=== PATIENT | male | born 1980 | race Hispanic/Latino ===

== ENCOUNTER 2021-02-25 10:26 | Emergency (ER) | payer SELFPAY ==
--- NOTE | 2021-02-25 10:45 | Emergency Department Report ---
ED General Adult HPI - General Chief complaint: Altered Mental Status Stated complaint: SEIZURE Time Seen by Provider: 02/25/21 10:35 Source: patient, EMS Mode of arrival: Stretcher Limitations: Altered Mental Status - History of Present Illness Initial comments: Patient is 40 years old male with history of substance abuse. Patient brought to the emergency room by EMS from a local parking lot for evaluation of possible seizure however there is nobody witnessed any seizure. Upon arrival to the ER patient is alert, oriented x3 in no acute distress. Patient stated that he does not remember what happened. Patient stated that he using methamphetamine every day. Patient denied any suicidal or homicidal ideation. He denied any auditory or visual hallucination. ED Review of Systems ROS: Stated complaint: SEIZURE Other details as noted in HPI Comment: All other systems reviewed and negative Constitutional: denies: chills, fever Respiratory: denies: cough, shortness of breath, SOB with exertion, SOB at rest Cardiovascular: denies: chest pain, palpitations Gastrointestinal: denies: abdominal pain, nausea, vomiting, diarrhea, constipation, hematemesis, melena, hematochezia Musculoskeletal: denies: back pain Neurological: denies: headache, weakness, numbness, paresthesias, confusion ED Past Medical Hx - Social History Smoking Status: Unknown if ever smoked Substance Use Type: None ED Physical Exam - General Limitations: Altered Mental Status General appearance: alert, in no apparent distress - Head Head exam: Present: atraumatic, normocephalic, normal inspection - Eye Eye exam: Present: normal appearance - ENT ENT exam: Present: normal exam, normal orophraynx, mucous membranes moist - Neck Neck exam: Present: normal inspection, full ROM. Absent: tenderness, meningismus - Respiratory Respiratory exam: Present: normal lung sounds bilaterally - Cardiovascular Cardiovascular Exam: Present: regular rate, normal rhythm, normal heart sounds - GI/Abdominal GI/Abdominal exam: Present: soft, normal bowel sounds. Absent: distended, tenderness, guarding, rebound, rigid, organomegaly, mass, bruit, pulsatile mass, hernia - Extremities Exam Extremities exam: Present: normal inspection, full ROM, normal capillary refill. Absent: tenderness, pedal edema, joint swelling, calf tenderness - Back Exam Back exam: Present: normal inspection, full ROM. Absent: CVA tenderness (R), CVA tenderness (L) - Neurological Exam Neurological exam: Present: alert, oriented X3, CN II-XII intact - Psychiatric Psychiatric exam: Present: normal mood. Absent: agitated, homicidal ideation, suicidal ideation - Skin Skin exam: Present: warm, intact, normal color ED Course Vital Signs 02/25/21 10:31 Temperature 98.7 F Pulse Rate 80 Respiratory 16 Rate Blood Pressure 108/73 Blood Pressure 108/73 [Right] O2 Sat by Pulse 100 Oximetry ED Medical Decision Making - Lab Data Result diagrams: 02/25/21 11:13 02/25/21 11:13 - Medical Decision Making Patient is 40 years old male with history of substance abuse. Patient brought to the emergency room by EMS from a local parking lot for evaluation of possible seizure however there is nobody witnessed any seizure. Upon arrival to the ER patient is alert, oriented x3 in no acute distress. Patient stated that he does not remember what happened. Patient stated that he using methamphetamine every day. Patient denied any suicidal or homicidal ideation. He denied any marvin tory or visual hallucination. Labs reviewed and is unremarkable including for positive methamphetamine. Patient sleeping comfortably in no acute distress. When awake patient is alert, oriented x3. Patient still denying any suicidal or homicidal ideation. No visual or auditory hallucination. Critical care attestation.: If time is entered above; I have spent that time in minutes in the direct care of this critically ill patient, excluding procedure time. ED Disposition Clinical Impression: Methamphetamine intoxication Disposition: HOME / SELF CARE / HOMELESS Is pt being admited?: No Condition: Stable Instructions: Methamphetamines Use Disorder Referrals: PRIMARY CARE, [Primary Care Provider] - 3-5 Days
[2021-02-25 11:40] LABS: Basophils % (Auto) 0.5 % (0.0-1.8); Eosinophils # (Auto) 0.1 K/mm3 (0.0-0.4); Hematocrit 44.8 % (35.5-45.6); Hemoglobin 14.4 gm/dl (11.8-15.2); Lymphocytes # (Auto) 1.7 K/mm3 (1.2-5.4); Lymphocytes % (Auto) 26.4 % (13.4-35.0); Mean Corpuscular HGB Conc 32 % (32-34); Mean Corpuscular Volume 92 fl (84-94); Monocytes # (Auto) 0.7 K/mm3 (0.0-0.8); Monocytes % (Auto) 10.6 % (0.0-7.3); Platelet Count 361 K/mm3 (140-440); Red Blood Count 4.88 M/mm3 (3.65-5.03); Red Cell Distribution Width 13.8 % (13.2-15.2)
[2021-02-25 11:57] LABS: Alanine Aminotransferase 48 units/L (7-56); Albumin 4.1 g/dL (3.9-5)
[2021-02-25 12:01] LABS: Bilirubin,Direct < 0.2 mg/dL (0-0.2)
[2021-02-25 12:03] LABS: Blood Urea Nitrogen 11 mg/dL (9-20); Calcium 8.9 mg/dL (8.4-10.2); Hemolysis Index 7
[2021-02-25 12:04] LABS: BUN/Creatinine Ratio 18
[2021-02-25 13:13] LABS: Bilirubin,Urine NEG (Negative); Blood,Urine NEG (Negative); Color,Urine Straw (Yellow); Protein,Urine <15 mg/dL mg/dL (Negative); Sperm,Urine 2+ /HPF (NP); Urobilinogen,Urine < 2.0 mg/dL (<2.0)
[2021-02-25 13:24] LABS: Benzodiazepines Screen,Urine Negative; Cannabinoid Screen,Urine Negative; Cocaine Screen,Urine Negative; Methadone Screen,Urine Negative; Opiate Screen,Urine Negative
[2021-02-25 13:44] LABS: Amphetamine Screen,Urine Positive
[2021-02-25 15:25] VITALS: BP 115/69
== END 2021-02-25 17:36 | disposition home or self-care (01) ==
LOC: ED 10:26
DX: F15.20 Other stimulant dependence, uncomplicated (principal)
CPT/HCPCS: 36415; 80048; 80076; 80307; 80320; 81001; 85025; 99284; G0480

== ENCOUNTER 2021-05-02 17:28 | Emergency (ER) | payer SELFPAY ==
--- NOTE | 2021-05-02 17:51 | Emergency Department Report ---
ED General Adult HPI - General Chief complaint: Overdose Stated complaint: possible drug overdose PUI?: No Time Seen by Provider: 05/02/21 17:38 Source: patient Mode of arrival: Ambulatory Limitations: No Limitations - History of Present Illness Initial comments: Patient is a 41-year-old male who presents emergency room with EMS for medical clearance. Patient brought in by EMS for possible overdose. Patient states that he is brought here because of a misunderstanding. Patient states he was in [employer] and accidentally peed in the store. The police then were notified and sent him to be evaluated by the ER. Patient denies pain. Patient denies hallucinations. Patient denies suicidal ideations. Patient denies depression. Patient denies anxiety. Patient states he is just tired. Patient states he took an extra Suboxone today because he was feeling an urge to use. Patient states he is on Suboxone for opiate addiction. Patient states he is compliant with his Suboxone clinic and his Suboxone use. Patient denies chest pain. Patient denies shortness of breath. Patient denies hitting his head. Patient denies loss of consciousness. Patient states he feels fine but just tired and fatigued. Patient denies recent travel. Patient denies recent international travel. Patient denies exposure to the novel coronavirus. Patient denies sick contacts. Patient denies fever and chills. Patient denies cough. Patient denies diarrhea. Patient denies coming in contact with anybody with symptoms of the novel coronavirus. -: Sudden Improves with: none Worsens with: none Associated Symptoms: denies other symptoms ED Review of Systems ROS: Stated complaint: possible drug overdose Other details as noted in HPI Constitutional: denies: chills, fever Eyes: denies: eye pain, eye discharge, vision change ENT: denies: ear pain, throat pain Respiratory: denies: cough, shortness of breath, wheezing Cardiovascular: denies: chest pain, palpitations Endocrine: no symptoms reported Gastrointestinal: denies: abdominal pain, nausea, diarrhea Genitourinary: denies: urgency, dysuria Musculoskeletal: denies: back pain, joint swelling, arthralgia Skin: denies: rash, lesions Neurological: denies: headache, weakness, paresthesias Psychiatric: denies: anxiety, depression Hematological/Lymphatic: denies: easy bleeding, easy bruising ED Past Medical Hx - Social History Smoking Status: Unknown if ever smoked Substance Use Type: None ED Physical Exam - General Limitations: No Limitations General appearance: alert, in no apparent distress - Head Head exam: Present: atraumatic, normocephalic - Eye Eye exam: Present: normal appearance, PERRL Pupils: Present: normal accommodation - ENT ENT exam: Present: mucous membranes moist - Neck Neck exam: Present: normal inspection, full ROM. Absent: tenderness, meningismus - Respiratory Respiratory exam: Present: normal lung sounds bilaterally. Absent: respiratory distress, wheezes, rales, rhonchi, stridor, chest wall tenderness - Cardiovascular Cardiovascular Exam: Present: regular rate, normal rhythm. Absent: systolic murmur, diastolic murmur, rubs, gallop - GI/Abdominal GI/Abdominal exam: Present: soft, normal bowel sounds. Absent: distended, tenderness, guarding - Rectal Rectal exam: Present: deferred - Extremities Exam Extremities exam: Present: normal inspection, full ROM. Absent: tenderness, calf tenderness - Back Exam Back exam: Present: normal inspection, full ROM. Absent: tenderness - Neurological Exam Neurological exam: Present: alert, oriented X3, CN II-XII intact, normal gait. Absent: motor sensory deficit - Psychiatric Psychiatric exam: Present: normal affect, normal mood - Skin Skin exam: Present: warm, dry, intact, normal color. Absent: rash ED Course - Reevaluation(s) Reevaluation #1: After initial valuation, the patient states he does not want to be further evaluated. Patient states he wants to leave the hospital. I discussed the risk with patient. Patient refused further assessment and treatment. Patient voiced understanding of risk. Patient signed AMA form. Patient will be given a formal discharge given that the patient is leaving the hospital AGAINST MEDICAL ADVICE. Patient given discharge instructions. Patient voiced understanding of discharge instructions. 05/02/21 17:48 ED Medical Decision Making - Medical Decision Making Patient is a 41-year-old male who presents emergency room for possible overdose and medical clearance. Patient was sent here via EMS by the police. Patient denied pain. Patient had no complaints. Patient refused further evaluation treatment. Patient is of sound mind and body. Patient signed AMA form. I discussed the risks directly with the patient. Patient voiced understanding of the risk. Patient left the hospital AGAINST MEDICAL ADVICE. Even though the patient is leaving against medical vice, the patient will be given discharge resources and discharge instructions. - Differential Diagnosis Overdose, drug abuse, accidental overdose. Critical care attestation.: If time is entered above; I have spent that time in minutes in the direct care of this critically ill patient, excluding procedure time. ED Disposition Clinical Impression: Encounter for medical clearance for patient hold Overdose Qualifiers: Encounter type: initial encounter Injury intent: accidental or unintentional Qualified Code(s): T50.901A - Poisoning by unspecified drugs, medicaments and biological substances, accidental (unintentional), initial encounter Disposition: 01 HOME / SELF CARE / HOMELESS Is pt being admited?: No Does the pt Need Aspirin: No Condition: Stable Additional Instructions: Patient to follow-up with primary care in 2 to 3 days. . Patient to rest. Patient to increase water. Patient to return to the ER if condition worsens, changes or new symptoms arise. Referrals: LIOR STEIN MD [Staff Physician] - 3-5 Days Time of Disposition: 17:53
== END 2021-05-02 18:00 | disposition home or self-care (01) ==
LOC: ED 17:28
DX: T50.7X1A Poisoning by analeptics and opioid receptor antagonists, accidental (unintentional), initial encounter (principal); Y92.89 Other specified places as the place of occurrence of the external cause
CPT/HCPCS: 99282

== ENCOUNTER 2021-08-12 18:37 | Emergency (ER) | payer SELFPAY ==
--- NOTE | 2021-08-13 01:52 | XRay Report ---
RIGHT TOE(S) 3 VIEW(S) INDICATION / CLINICAL INFORMATION: TOE INJURY COMPARISON: None available. FINDINGS: BONES / JOINT(S): No acute fracture or subluxation. No significant arthritis. SOFT TISSUES: Possible soft tissue injury to the nail bed. ADDITIONAL FINDINGS: None. IMPRESSION: 1. No evidence of acute osseous pathology. Signer Name: Armando Pastor II, MD Signed: 08/13/2021 1:48 AM Workstation Name: [id number]
[2021-08-13] MEDS ORDERED: SULFAMETHOXAZOLE/TRIMETHOPRIM 800/160MG DS TAB PO ONE ×2 (03:23→04:47)
[2021-08-13] MEDS ORDERED: IBUPROFEN 600 MG TAB PO ONE ×2 (03:23→04:47)
--- NOTE | 2021-08-13 03:30 | Emergency Department Report ---
ED Extremity Problem HPI - General Chief complaint: Extremity Injury, Lower Stated complaint: INJURY TO RT TOE Source: EMS Mode of arrival: Stretcher Limitations: No Limitations - History of Present Illness Initial comments: Patient is a 41-year-old male with no past medical history presents to the ED with complaint of acute onset right great toe pain and swelling with mild kylie thematous rash for the last 1 week. Patient states that the pain is worsened in the last 3 days secondary bearing weight makes the pain worse. Patient denies fever, chills, nausea and vomiting, traumatic injury, headache, numbness and tingling or weakness of right foot or right great toe. MD Complaint: extremity pain (right great toe pain and swelling with erythematous rash), extremity swelling (right great toe pain and swelling) -: Sudden, week(s) (1) Location: right, toe (right great toe ) History of Same: No -: Yes arthralgia Radiation: distal Severity scale (0 -10): 6 Quality: aching, sharp Consistency: constant Improves with: nothing Worsens with: weight bearing, walking, palpation Associated Symptoms: denies other symptoms, rash (swollen mildy erythematous rash on right great toe ). denies: chest pain, shortness of breath, fever, myalgias, arthralgias - Related Data Previous Rx's Medication Instructions Recorded Last Taken Type Ibuprofen [Motrin] 600 mg PO Q8H PRN #30 tablet 08/13/21 Unknown Rx Sulfamethoxazole/Trimethoprim 1 each PO Q12H #20 tab 08/13/21 Unknown Rx [Bactrim DS TAB] Allergies Allergy/AdvReac Type Severity Reaction Status Date / Time No Known Allergies Allergy Unverified 05/02/21 17:49 ED Review of Systems ROS: Stated complaint: INJURY TO RT TOE Other details as noted in HPI Constitutional: denies: chills, fever Eyes: denies: eye pain, eye discharge, vision change ENT: denies: ear pain, throat pain Respiratory: denies: cough, shortness of breath, wheezing Cardiovascular: denies: chest pain, palpitations Endocrine: no symptoms reported Gastrointestinal: denies: abdominal pain, nausea, diarrhea Genitourinary: denies: urgency, dysuria Musculoskeletal: joint swelling (Right great toe pain and swelling), arthralgia (Right great toe pain and swelling). denies: back pain Skin: rash (Mild erythematous maculopapular rash on right great toe), change in color. denies: lesions Neurological: denies: headache, weakness, paresthesias Psychiatric: denies: anxiety, depression Hematological/Lymphatic: denies: easy bleeding, easy bruising ED Past Medical Hx - Past Medical History Previous Medical History?: Yes Additional medical history: Hep C - Social History Smoking Status: Unknown if ever smoked - Medications Home Medications: Home Medications Medication Instructions Recorded Confirmed Last Taken Type Ibuprofen [Motrin] 600 mg PO Q8H PRN #30 tablet 08/13/21 Unknown Rx Sulfamethoxazole/Trimethoprim 1 each PO Q12H #20 tab 08/13/21 Unknown Rx [Bactrim DS TAB] ED Physical Exam - General Limitations: No Limitations General appearance: alert, in no apparent distress - Head Head exam: Present: atraumatic, normocephalic, normal inspection - Eye Eye exam: Present: normal appearance, PERRL, EOMI Pupils: Present: normal accommodation - ENT ENT exam: Present: normal exam, normal orophraynx, mucous membranes moist, TM's normal bilaterally, normal external ear exam - Neck Neck exam: Present: normal inspection, full ROM. Absent: tenderness - Respiratory Respiratory exam: Present: normal lung sounds bilaterally. Absent: respiratory distress, wheezes, rales, chest wall tenderness, decreased breath sounds, prolonged expiratory - Cardiovascular Cardiovascular Exam: Present: normal rhythm, tachycardia, normal heart sounds. Absent: systolic murmur, diastolic murmur, rubs, gallop - GI/Abdominal GI/Abdominal exam: Present: soft, normal bowel sounds. Absent: tenderness, guarding, rebound, hyperactive bowel sounds, hypoactive bowel sounds - Extremities Exam Extremities exam: Present: normal inspection, full ROM, tenderness (Palpable right great toe tenderness with mild swelling due to mild erythematous maculopapular rash), normal capillary refill, joint swelling. Absent: pedal edema, calf tenderness - Back Exam Back exam: Present: normal inspection, full ROM. Absent: tenderness, CVA tenderness (R), CVA tenderness (L), muscle spasm, paraspinal tenderness, vertebral tenderness - Neurological Exam Neurological exam: Present: alert, oriented X3, CN II-XII intact, normal gait, reflexes normal - Psychiatric Psychiatric exam: Present: normal affect, normal mood - Skin Skin exam: Present: warm, dry, intact, rash (Mild erythematous maculopapular rash on distal right great toe with localized tenderness and mild swelling), erythema. Absent: normal color ED Course Vital Signs 08/12/21 19:45 Temperature 98.6 F Pulse Rate 100 H Respiratory 18 Rate Blood Pressure 130/80 O2 Sat by Pulse 100 Oximetry ED Medical Decision Making - Medical Decision Making This is a 41-year-old male with no past medical history presents to the ED with complaint of acute onset right great toe pain and swelling with mild erythematous rash for the last 1 week. Patient states that the pain is worsened in the last 3 days secondary bearing weight makes the pain worse. In the ED, patient is alert and oriented x3 and is not in any distress. Right great toe x- ray showed no acute fractures or subluxations or any sign of osteomyelitis. Patient was treated in the ED for pain and also given initial oral antibiotics. Patient was discharged home on pain medication and antibiotics and advised to follow-up with his primary care physician in 7 to 10 days for reevaluation. Patient was advised return to the ED immediately if symptoms get worse. - Differential Diagnosis Cellulitis; great toe paronychia Critical care attestation.: If time is entered above; I have spent that time in minutes in the direct care of this critically ill patient, excluding procedure time. ED Disposition Clinical Impression: Paronychia of great toe of right foot, Cellulitis of great toe of right foot Disposition: HOME / SELF CARE / HOMELESS Is pt being admited?: No Does the pt Need Aspirin: No Condition: Stable Instructions: Cellulitis, Adult, [id number], Paronychia, [id number] Additional Instructions: Take medication with food, drink plenty of fluids and follow-up with your primary care physician in 7 to 10 days for evaluation. Return to the ED immediately if symptoms get worse. Prescriptions: Sulfamethoxazole/Trimethoprim [Bactrim DS TAB] 1 each PO Q12H #20 tab Ibuprofen [Motrin] 600 mg PO Q8H PRN #30 tablet PRN Reason: Pain Referrals: [facility] [Provider Group] - 3-5 Days Time of Disposition: 03:28 Print Language: BELARUSIAN
[2021-08-13 05:48] VITALS: BP 131/78
== END 2021-08-13 05:12 | disposition home or self-care (01) ==
LOC: ED 18:37
DX: L03.031 Cellulitis of right toe (principal)
CPT/HCPCS: 99283